=== PATIENT | female | born 1985 | race Caucasian/White ===

== ENCOUNTER 2018-08-13 09:59 | Emergency (ER) | payer OTHER ==
[2018-08-13] MEDS ORDERED: NS 1,000 ML IV ONE (10:39)
[2018-08-13] MEDS ORDERED: ONDANSETRON 4 MG/2 ML VIAL IVP ONE (10:39)
--- NOTE | 2018-08-13 10:39 | EDPHY ---
H & P Stated Complaint: fainted this morning, slight CASEY, feels shakey, stomach upset Source: Patient, Family Exam Limitations: No limitations - Personal History LMP (Females 10-55): IUD In Place Current Tetanus/Diphtheria Vaccine: Yes Current Tetanus Diphtheria and Acellular Pertussis (TDAP): Yes - Medical/Surgical History Hx Asthma: No Hx Chronic Respiratory Disease: No Hx Diabetes: No Hx Cardiac Disease: No Hx Renal Disease: No Hx Cirrhosis: No Hx Alcoholism: No Hx HIV/AIDS: No Hx Splenectomy or Spleen Trauma: No - Social History Smoking Status: Never smoked Time Seen by Provider: 08/13/18 10:33 HPI/ROS: HPI: This is a 33-year-old female who presents with Chief Complaint: fainted this morning, slight CASEY, feels shakey, stomach upset Location: Body Quality: Fainting Duration: Prior to arrival Signs and Symptoms: no fever, + nausea, no vomiting, no photophobia, no noise sensitivity, no neck stiffness, no ear pain, no tinnitus, no nasal congestion, no sinus pressure, no weakness, no radiation, no aura Timing: Acute, resolved Severity: Moderate Context: Patient is generally healthy, has no primary care provider, presents from her employer with standing up for meeting prior to arrival and having a witnessed "fainting episode." Patient reports that she started to feel nauseous and warm all over and then "the room started to go black." Witnesses helped her to the ground and she did not fall and hit her head. She denies any head injury, amnesia, vomiting. She reports that she had a very light breakfast this morning and took a zinc sulfate for the 1st time on a relatively empty stomach. Before the meeting she had talked her advised that the pill was making " her nauseous." She has never had a fainting episode in the past. No family cardiac history. She denies actual abdominal pain, no urinary symptoms. Modifying Factors: None Comment: ROS: A comprehensive 10 system review of systems is otherwise negative aside from elements mentioned in the history of present illness. MEDICAL/SURGICAL/SOCIAL HISTORY: Medical history: Generally healthy. Does not take any regular medications. Has an IUD and does not have regular menses. Surgical history: Denies Social history: Employed. . Denies tobacco use. Family history noncontributory. CONSTITUTIONAL: Well-developed, well-nourished adult white female, awake and alert, no obvious distress HEENT: Atraumatic and normocephalic, PERRL, EOMI. Nares patent; no rhinorrhea; no nasal mucosal edema. Tympanic membranes clear. Oropharynx clear, no exudate and moist pink mucosa. Airway patent. No lymphadenopathy. No meningismus. No Carotid bruits appreciated. Cardiovascular: Normal S1/S2, regular rate, regular rhythm, without murmur rub or gallop. PULMONARY/CHEST: Symmetrical and nontender. Clear to auscultation bilaterally. Good air movement. No accessory muscle usage. ABDOMEN: Soft, nondistended, nontender, no rebound, no guarding, no peritoneal signs, no masses or organomegaly. No CVAT. EXTREMITIES: 2/2 pulses, strength 5/5, no deformities, no clubbing, no cyanosis or edema. NEUROLOGICAL: no focal neuro deficits. GCS 15. Cranial nerves 2-12 grossly intact. Negative Romberg testing. Normal pronator drift. Normal heel to chappell test. Normal nose to finger testing. Speech clear. SKIN: Warm and dry, no erythema. no rash. Good capillary refill. (Chloe Arango) Constitutional: Initial Vital Signs Temperature (C) 36.5 C 08/13/18 10:02 Heart Rate 56 L 08/13/18 10:02 Respiratory Rate 14 08/13/18 10:02 Blood Pressure 109/79 08/13/18 10:02 O2 Sat (%) 97 08/13/18 10:02 O2 Delivery Mode Room Air Allergies/Adverse Reactions: No Known Allergies Allergy (Unverified 08/13/18 10:02) Home Medications: Medication Instructions Recorded NK [No Known Home Meds] 08/13/18 Medical Decision Making - Diagnostics EKG Interpretation: 12 lead EKG: Indication: Syncope Rhythm: Normal sinus rhythm [place]: Normal Intervals: Normal QRS: Normal ST segments: Normal INTERPRETATION: No acute ischemic changes The 12 lead EKG was interpreted by myself and with attending. (Chloe Arango) ED Course/Re-evaluation: Vital signs reviewed and stable upon arrival. Placed on security monitor no arrhythmias seen in 6 hr. Orthostatics vital signs obtained and negative IV access, laboratory studies, EKG Given 1 L normal saline and IV Zofran 4 mg with adequate relief EKG my read and with attending shows sinus rhythm with a rate of 61 beats per minute. No acute ischemic changes, no heart blocks, no arrhythmias. 1123: Laboratory studies reviewed. No signs of leukocytosis/anemia/platelet dysfunction/GAUTAM/electrolyte imbalance/pancreatitis//acute coronary syndrome/thyroid disease. LFTs mildly elevate; hepatitis panel sent and ultrasound ordered 1300: Notified by Radiology that abdominal ultrasound is unremarkable. Suspect that the fainting episode was directly related to poor oral intake and sudden onset of nausea after taking medications without food. This patient was seen under the supervision of my secondary supervising physician. I evaluated and cared for this patient with attending. (Chloe Arango ) I did not see this patient while she was in the emergency department. However her care was discussed with the PA while the patient was in the department. I agree with treatment plan and management (Fidel Zavaleta) Differential Diagnosis: Syncope including but not limited to vasovagal syncope, arrhythmia, dehydration , and blood loss. (Chloe Arango) - Data Points Laboratory Results: Laboratory Results 08/13/18 10:30 08/13/18 10:30 Medications Given: Discontinued Medications Sodium Chloride (Ns) 1,000 mls @ 0 mls/hr IV ONCE ONE; Wide Open PRN Reason: Protocol Stop: 08/13/18 10:40 Last Admin: 08/13/18 10:45 Dose: 1,000 mls Ondansetron HCl (Zofran) 4 mg IVP EDNOW ONE Stop: 08/13/18 10:40 Last Admin: 08/13/18 10:46 Dose: 4 mg Point of Care Test Results: Chemistry 08/13/18 10:35 POC Troponin I 0.00 ng/mL ng/mL (0.00-0.08) Departure - Departure Disposition: Home, Routine, Self-Care Clinical Impression: Fainting spell, Elevated liver enzymes Condition: Good Instructions: Liver Disease Diet (DC), Syncope (ED), Near Syncope (ED) Additional Instructions: Consume a minimum of 8-10 glasses of water or electrolyte fluid replacement drinks that include Gatorade, Powerade, Pedialyte. Eat a minimum of 3 regular meals throughout the day. Do not take medicine on an empty stomach. Establish care with primary care provider in the next 1-2 weeks. You will need follow-up for your hepatitis panel results and to have your liver enzymes repeated in the next 6-8 weeks. Please avoid alcohol and Tylenol. Return to the ER immediately if you have progressive headaches, neurologic deficits, gait abnormality, visual disturbance, slurred speech, or any other symptom that concerns you. Follow-Up: Please follow-up as noted above. Follow-up sooner if your condition worsens or if you develop any new problems. Call as soon as possible for an appointment. Be clear when you call for an appointment that this is an Emergency Department follow-up. Contact the Emergency Department if you have trouble arranging follow-up care. Our referrals are not based on your insurance network. When time allows, contact your insurance carrier to verify the referral physician is in your plan. If not, get a referral for an in-network systems operator. Referrals: Ratna Schulz MD [Medical Doctor] - As per Instructions
--- NOTE | 2018-08-13 10:48 | CPEKG ---
Test Reason : OPEN Blood Pressure : / mmHG Vent. Rate : 061 BPM Atrial Rate : 000 BPM P-R Int : 134 ms QRS Dur : 086 ms QT Int : 424 ms P-R-T Axes : 041 052 033 degrees QTc Int : 427 ms Sinus arrhythmia Confirmed by Fidel Zavaleta ([id number]) on 08/13/2018 10:48:33 AM Referred By: PHYSICIAN ED Confirmed By:Fidel Zavaleta
[2018-08-13 10:50] LABS: PLATELET COUNT 220 10^3/uL (150-400)
[2018-08-13 12:57] VITALS: BP 109/69
[2018-08-13 15:09] LABS: HEPATITIS A ANTIBODY IGM (BCH) NEGATIVE (NEGATIVE); HEPATITIS B CORE AB IGM NEGATIVE (NEGATIVE); HEPATITIS B SURFACE ANTIGEN NEGATIVE (NEGATIVE)
[2018-08-13 15:35] LABS: HEPATITIS C ANTIBODY TOTAL NEGATIVE (NEGATIVE)
== END 2018-08-13 12:57 | disposition home or self-care (01) ==
DX: R55 Syncope and collapse (principal); R74.8 Abnormal levels of other serum enzymes
CPT/HCPCS: 84484-ER; 96374; G0472; J2405